=== PATIENT | male | born 1960 | race Caucasian/White ===

== ENCOUNTER 2016-11-24 14:35 | Emergency (ER) | payer BC ==
--- NOTE | 2016-11-24 15:33 | UC ---
FLU HPI - HPI Summary HPI Summary: pt c/o sudden onset of nasal congestion, cough, generalized malaise, chills and myalgia over the last 24 hours. Pt denies any SOB or COPD. PT states that cough worsens when he lays on his back for sleep. - History of Current Complaint Chief Complaint: UCRespiratory Stated Complaint: cough,sinuses Time Seen by Provider: 11/24/16 14:41 Hx Obtained From: Patient Onset/Duration: Sudden Onset, Lasting Hours Severity Currently: Moderate Severity Initially: Mild Associated Signs & Symptoms: Positive: Myalgia, Cough, Nasal Congestion - Allergy/Home Medications Allergies/Adverse Reactions: Allergies Allergy/AdvReac Type Severity Reaction Status Date / Time No Known Allergies Allergy Verified 11/24/16 15:01 Home Medications: Home Medications Atorvastatin* [Lipitor 10 MG*] 10 mg PO DAILY 11/24/16 [History Confirmed ] PMH/Surg Hx/FS Hx/Imm Hx Previously Healthy: Yes - Surgical History Surgical History: Yes Surgery Procedure, Year, and Place: vasectomy - Family History Known Family History: Positive: Other - positive FMH of URI - Social History Lives: Alone Alcohol Use: None Substance Use Type: None Smoking Status (MU): Never Smoked Tobacco Review of Systems Constitutional: Chills, Fatigue Skin: Negative Eyes: Negative ENT: Other - nasal congestion Respiratory: Cough Cardiovascular: Negative Gastrointestinal: Negative Genitourinary: Negative, Dysuria Neurovascular: Negative Musculoskeletal: Myalgia Neurological: Negative Psychological: Negative All Other Systems Reviewed And Are Negative: Yes Physical Exam Triage Information Reviewed: Yes Appearance: Ill-Appearing Vital Signs: Initial Vital Signs Pulse 81 11/24/16 14:53 Resp 20 11/24/16 14:53 BP 147/79 11/24/16 14:53 Pulse Ox 95 11/24/16 14:53 Eye Exam: Normal ENT Exam: Other ENT: Positive: Nasal congestion, Other: - cerumen bilateral ear canals Neck exam: Normal Respiratory Exam: Other Respiratory: Positive: Wheezing Cardiovascular Exam: Normal Musculoskeletal Exam: Normal Neurological Exam: Normal Psychological Exam: Normal Skin Exam: Normal Flu Course/Dx - Course Course Of Treatment: I spoke to the pt about his elevated BP today. He stated that his BP is always elevated at the "doctors office" I recommend that he folow up with his pCP as soon as possible. - Differential Dx/Diagnosis Differential Diagnosis/HQI/PQRI: Bronchitis, Influenza Provider Diagnoses: pneumonia. elevated BP Discharge - Discharge Plan Condition: Stable Disposition: HOME Prescriptions: Azithromycin TAB* [Zithromax TAB (Z-DWIGHT) 250 mg #6 tabs] 2 tab PO .TODAY, THEN 1 DAILY #1 dwight Benzonatate CAP* [Tessalon 100 MG CAP*] 100 mg PO TID PRN #30 cap PRN Reason: Cough predniSONE TAB* [Deltasone TAB*] 30 mg PO DAILY #12 tab Patient Education Materials: Pneumonia (ED) Forms: *Work Release Referrals: Jona Morris DO [Primary Care Provider] - Additional Instructions: Please follow up with your PCP or return to clinic. It has been noted that your Blood pressure was elevated at today's visit. Please follow up with your PCP regarding this.
[2016-11-24 15:47] VITALS: BP 132/76
--- NOTE | 2016-11-24 15:52 | RAD ---
INDICATION: Cough, sneezing 3 days duration. COMPARISON: None. TECHNIQUE: Dual energy PA and routine lateral views of the chest were obtained. REPORT: Mild prominence of the interstitial markings. Small region of alveolar consolidation at the peripheral RIGHT mid lung zone. Negative for pleural effusion or pneumothorax. Negative for cardiomegaly. Unremarkable central pulmonary vasculature and mediastinal contours. IMPRESSION: Alveolar infiltrate which may involve the anterior segment of the RIGHT upper lobe or superior segment of the RIGHT lower lobe. Radiographic follow-up after therapy suggested to assess for resolution and exclude an obscured mass lesion.
== END 2016-11-24 16:13 | disposition home or self-care (01) ==
LOC: UCCORT 14:35
DX: J18.9 Pneumonia, unspecified organism (principal); R03.0 Elevated blood-pressure reading, without diagnosis of hypertension; H61.23 Impacted cerumen, bilateral
CPT/HCPCS: 71020; 87502; 99212; G0463